=== PATIENT | female | born 1990 | race Caucasian/White ===

== ENCOUNTER 2016-08-28 13:02 | Emergency (ER) | payer MEDICAID ==
[~2016-08-28 13:02] MED LIST: COLACE100 M1 PO; GLUCAGON EME1 MG/KIT IM; GLUCOPHAGE PO; GLUCOPHAGE1000 MG PO; GLUCOPHAGE500 MG PO; HUMALOG MI100 UNITS/ SC; HUMALOG100 U/ML SC; HUMALOG100 U/ML SQ; HUMALOG100 UNIT/1 SQ; HUMALOG100 UNITS/ SC; HUMULIN N100 U/ML SQ; HUMULIN N100 UNIT/2 SC; HUMULIN N100 UNIT/2 SQ; IBUPROFEN800 M1 PO; LANTUS100 U/ML SC; LANTUS100 UNITS/ SC; LEVEMIR100 U/M SC; LEVEMIR100 U/M SQ; MOTRIN800 MG PO; NORCO 5/325 TAB1 TAB PO; NOVOLIN N100 U/ML SQ; NOVOLOG100 UNITS/ SC; PEN-VEE K500 MG PO; PERCOCET 5-3251 EACH PO; PRENATAL TABLE1 EAC5 PO; PRENATAL VITAM1 EAC8 PO; PRENATAL1 EACH PO; PROG VG; TOBRAMYCIN5 ML OP; TRAMADOL HCL50 MG PO; ULTRAM50 M1 PO; ZOFRAN ODT4 MG/UDTAB PO; ZOFRAN4 M1 PO
[2016-08-28 15:51] LABS: URINE APPEARANCE CLEAR; URINE BILIRUBIN NEGATIVE (NEG); URINE BLOOD MODERATE (NEG); URINE COLOR YELLOW; URINE GLUCOSE (UA) LARGE (NEG); URINE KETONE NEGATIVE (NEG); URINE LEUKOCYTE ESTERASE NEGATIVE (NEG); URINE NITRITE NEGATIVE (NEG); URINE PH 6.5 (5.0-8.0); URINE PROTEIN SMALL (NEG); URINE SPECIFIC GRAVITY 1.015 (1.003-1.030)
[2016-08-28 15:56] LABS: URINE EPITHELIAL CELLS 0-5 /[HPF] (0-10)
[2016-08-28 15:57] LABS: URINE WBC RARE /[HPF] (0-5)
[2016-08-28] MEDS ORDERED: VANDAZOLE PV (16:04)
== END 2016-08-28 16:19 ==
LOC: EDMED 13:02
PROVIDERS: Physician Assistant
DX: N76.0 Acute vaginitis (principal); B96.89 Other specified bacterial agents as the cause of diseases classified elsewhere; O24.919 Unspecified diabetes mellitus in pregnancy, unspecified trimester; O99.330 Smoking (tobacco) complicating pregnancy, unspecified trimester; F17.210 Nicotine dependence, cigarettes, uncomplicated; Z79.4 Long term (current) use of insulin